=== PATIENT | female | born 1950 | race Caucasian/White ===

== ENCOUNTER 2020-07-04 06:22 | Inpatient (IN) | payer OTHER ==
[~2020-07-04 06:22] MED LIST: ASPIRIN EC81 MG PO; ATENOLOL-CHLOR1 EACH PO; ATORVASTATIN CA40 MG PO; LEVOTHYROXINE75 MC1 PO; LOVAZA1 GM PO; MONTELUKAST SOD10 MG PO; PANTOPRAZOLE SO40 MG PO; POTASSIUM CHLO10 ME1 PO; SERTRALINE HCL100 MG PO; VITAMIN D3250 MC1 PO
[2020-07-04] MEDS ORDERED: VENTOLIN HFA IN18 GM INH (06:58)
--- NOTE | 2020-07-04 13:28 | NUR ---
PT. REQUESTS [facility] OUTPT. EMEKA GONCALVES AT [facility] FIRST APPT. IS SATURDAY07/06/20 @ 10:00 A.M. [phone].
--- NOTE | 2020-07-04 15:31 | NUR ---
PT. TO D/C HOME. PT. SISTER WILL BE STAYING WITH HER. PT. WILL NEED A ROLLING WALKER AND 05/02. PT. REQUESTS OUTPT. AT [facility]. FIRST APPT. IS 07/06/20 @ 10:00 A.M.
[2020-07-05 07:05] LABS: BASOPHIL 0.2 % (0-2); EOSINOPHIL 0.5 % (0-7); HCT 23.7 % (37.0-47.0); HGB 8.1 g/dl (12.5-16.0); MCH 30.2 pg (25.0-31.0); MCHC 34.2 g/dL (32.0-36.0); MCV 88.4 fL (78.0-100.0); MONOCYTE 5.8 % (0-12); MPV 9.5 fL (6.0-9.5); NEUTROPHIL 80.2 % (41-80); NRBC 0; PLT 182 K/uL (150-400); RBC 2.68 M/uL (4.20-5.40); RDW 13.2 % (11.5-14.0); WBC 9.1 K/uL (4.0-10.5)
[2020-07-05 07:35] LABS: CREATININE 0.76 mg/dL (0.51-0.95); POTASSIUM 2.9 mmol/L (3.5-5.1)
[2020-07-05] MEDS ORDERED: 3IN1 COMMODE XX (13:37)
[2020-07-05] MEDS ORDERED: ULTRA-LIGHT RO1 EACH XX (13:37)
[2020-07-05] MEDS ORDERED: FEOSOL325 MG PO (13:40)
[2020-07-05] MEDS ORDERED: OXYCODONE-ACET1 EAC1 PO (13:40)
[2020-07-05] MEDS ORDERED: XARELTO10 MG PO (13:40)
[2020-07-05 14:37] LABS: BUN/CREAT RATIO (CALC) 23.3 RATIO; CREATININE 0.86 mg/dL (0.51-0.95); POTASSIUM 2.6 mmol/L (3.5-5.1)
[2020-07-06 07:05] LABS: BASOPHIL 0.6 % (0-2); EOSINOPHIL 3.9 % (0-7); HCT 23.9 % (37.0-47.0); HGB 8.2 g/dl (12.5-16.0); LYMPHOCYTE 13.6 % (15-48); MCH 30.4 pg (25.0-31.0); MCHC 34.3 g/dL (32.0-36.0); MCV 88.5 fL (78.0-100.0); MONOCYTE 5.4 % (0-12); MPV 9.8 fL (6.0-9.5); NEUTROPHIL 76.1 % (41-80); NRBC 0; PLT 193 K/uL (150-400); RDW 13.2 % (11.5-14.0); WBC 7.2 K/uL (4.0-10.5)
[2020-07-06 07:35] LABS: BUN/CREAT RATIO (CALC) 17.6 RATIO; CREATININE 0.68 mg/dL (0.51-0.95); POTASSIUM 3.3 mmol/L (3.5-5.1)
[2020-07-06] MEDS ORDERED: K-DUR20 MEQ PO (08:08)
--- NOTE | 2020-07-06 11:59 | NUR ---
[facility] APPT IS SATURDAY AT 1:00 P.M. PT. HAS THE AMIE PAPERWORK. PER [facility] AT [facility] PT. XARELTO IS [phone] DUE TO A HIGH DEDUCTIBLE. ATTEMPTED TO GET PT. A DISCOUNT THROUGH [employer] FOR XARELTO. BUT PT. WAS NOT ELIGIBLE DUE TO ONLY BEING ON XARELTO FOR HIP SURGERY. PT. UNDERSTANDS.
== END 2020-07-06 11:35 | disposition home or self-care (01) | DRG 470 ==
LOC: FMS 06:22 → FSDC 06:22 → FMS 09:00
PROVIDERS: Nurse Practitioner Adult Health; ADMIT Legal Medicine
PROC: 0SRB04Z Replacement of Left Hip Joint with Ceramic on Polyethylene Synthetic Substitute, Open Approach (ICD-10-PCS; principal; 2020-07-04 09:00)
DX: M16.12 Unilateral primary osteoarthritis, left hip (principal); E87.6 Hypokalemia; R33.8 Other retention of urine; I95.81 Postprocedural hypotension; K21.9 Gastro-esophageal reflux disease without esophagitis; E78.5 Hyperlipidemia, unspecified; Z96.652 Presence of left artificial knee joint; Z79.01 Long term (current) use of anticoagulants; Z98.890 Other specified postprocedural states
CPT/HCPCS: 36415; 73501; 76000; 80048; 85025; 86850; 86900; 86901; 94010; 94760; 94762; 97110; 97162; 97166; 97530-GP; 97535; C1776; J0171; J0697; J1100; J1170; J1885; J2250; J2270; J2405; J2704; J2795; J3010; J3480; J7030; J7120; U0002